=== PATIENT | female | born 1995 | race Caucasian/White ===

== ENCOUNTER 2022-11-18 07:13 | Emergency (ER) | payer OTHER ==
[~2022-11-18] VITALS: Ht 162.6 cm; Wt 63.6 kg
[2022-11-18] MEDS ORDERED: AMOXICILLIN500 MG PO (08:48)
[2022-11-18 09:16] VITALS: BP 125/92
== END 2022-11-18 09:38 | disposition home or self-care (01) ==
LOC: ED 07:13
DX: J02.9 Acute pharyngitis, unspecified (principal); Z20.822 Contact with and (suspected) exposure to COVID-19

== ENCOUNTER 2022-12-17 10:51 | Emergency (ER) | payer OTHER ==
[~2022-12-17] VITALS: Ht 162.6 cm; Wt 63.5 kg
[~2022-12-17 10:51] MED LIST: AMOXICILLIN500 MG PO
[2022-12-17 11:38] VITALS: BP 118/80
[2022-12-17 12:00] VITALS: BP 117/74
[2022-12-17] MEDS ORDERED: BENZONATATE200 MG PO (14:18)
[2022-12-17] MEDS ORDERED: ZYRTEC10 MG PO (14:18)
== END 2022-12-17 14:50 | disposition home or self-care (01) ==
LOC: ED 10:51
DX: J06.9 Acute upper respiratory infection, unspecified (principal); Z20.822 Contact with and (suspected) exposure to COVID-19

== ENCOUNTER 2022-12-31 08:31 | Emergency (ER) | payer OTHER ==
[~2022-12-31] VITALS: Ht 162.6 cm; Wt 66.0 kg
[~2022-12-31 08:31] MED LIST changes: +BENZONATATE200 MG PO; +ZYRTEC10 MG PO
[2022-12-31 08:37] VITALS: BP 127/82
[2022-12-31 08:45] VITALS: BP 122/73
[2022-12-31 09:00] VITALS: BP 118/77
[2022-12-31] MEDS ORDERED: TOBREX OPTH5 ML/BTL OU (09:07)
[2022-12-31 09:16] VITALS: BP 125/74
[2022-12-31 09:17] VITALS: BP 125/74
== END 2022-12-31 09:35 | disposition home or self-care (01) ==
LOC: ED 08:31
DX: H10.9 Unspecified conjunctivitis (principal); J02.9 Acute pharyngitis, unspecified; R59.0 Localized enlarged lymph nodes

== ENCOUNTER 2023-02-04 13:07 | Emergency (ER) | payer OTHER ==
[~2023-02-04] VITALS: Ht 162.6 cm; Wt 64.4 kg
[~2023-02-04 13:07] MED LIST changes: +TOBREX OPTH5 ML/BTL OU
[2023-02-04 14:30] VITALS: BP 130/87
[2023-02-04] MEDS ORDERED: TAM75CAP PO (14:57)
[2023-02-04 15:13] VITALS: BP 130/87
== END 2023-02-04 15:30 | disposition home or self-care (01) ==
LOC: ED 13:07
DX: J10.1 Influenza due to other identified influenza virus with other respiratory manifestations (principal)

== ENCOUNTER 2024-05-25 19:50 | Emergency (ER) | payer SELFPAY ==
[~2024-05-25] VITALS: Ht 162.6 cm; Wt 68.0 kg
[~2024-05-25 19:50] MED LIST changes: +TAM75CAP PO
[2024-05-25] MEDS ORDERED: ACETAMINOPHEN 500 MG TAB PO ONE (20:10)
[2024-05-25] MEDS ORDERED: DICLOFENAC SODIUM 75 MG/TAB PO ONE (20:10)
[2024-05-25] MEDS ORDERED: VOLTAREN - GENE75 MG PO (20:10)
[2024-05-25 20:28] VITALS: BP 117/78
== END 2024-05-25 20:32 | disposition home or self-care (01) | DRG 313 ==
LOC: ED 19:50
DX: R07.89 Other chest pain (principal); Z80.1 Family history of malignant neoplasm of trachea, bronchus and lung; Z80.8 Family history of malignant neoplasm of other organs or systems

== ENCOUNTER 2024-07-24 17:51 | Emergency (ER) | payer SELFPAY ==
[~2024-07-24] VITALS: Ht 162.6 cm; Wt 72.0 kg
[~2024-07-24 17:51] MED LIST changes: +VOLTAREN - GENE75 MG PO
[2024-07-24 18:23] VITALS: BP 149/105
[2024-07-24 18:30] VITALS: BP 120/82
[2024-07-24] MEDS ORDERED: KETOROLAC TROMETHAMINE 15 MG/ML SDV IV ONE (18:35)
[2024-07-24 18:46] LABS: BASO% 0.3 % (0-3); EOS% 1.4 % (0-8); HEMATOCRIT 36.4 % (37.0-47.0); IMMATURE GRANULOCYTES 0.1 % (0.0-5.0); LYMPH% 30.7 % (15-41); MEAN CELL VOLUME 100.8 fL CALC (80.0-100.0); MEAN CORPUSCULAR HGB 33.2 pG CALC (26.0-32.0); MONO% 5.8 % (2-13); NEUT# 8.68 thou/uL (2.00-7.15); NEUT% 61.7 % (42-76); RED BLOOD COUNT 3.61 mill/uL (4.20-5.60); RED CELL DISTRI WIDTH 11.4 % (11.5-15.5)
[2024-07-24 19:02] LABS: ALBUMIN 4.2 g/dL (3.2-5.0); BILIRUBIN, TOTAL 0.4 mg/dL (0.02-1.3); CREATININE 0.8 mg/dL (0.5-1.0); POTASSIUM 3.2 mmol/l (3.5-5.1); TOTAL PROTEIN 7.5 g/dL (6.3-8.2)
[2024-07-24] MEDS ORDERED: AZITHROMYCIN 250 MG/TAB PO ONE (19:30)
[2024-07-24] MEDS ORDERED: ZITHROMAX250 MG PO (19:36)
[2024-07-24] MEDS ORDERED: IBUPAK600 MG PO (19:36)
[2024-07-24 19:45] VITALS: BP 122/86
== END 2024-07-24 19:45 | disposition home or self-care (01) | DRG 816 ==
LOC: ED 17:51
PROVIDERS: Nurse Practitioner Family
DX: A28.1 Cat-scratch disease (principal)

== ENCOUNTER 2024-07-31 15:10 | Emergency (ER) | payer SELFPAY ==
[~2024-07-31] VITALS: Ht 162.6 cm; Wt 73.0 kg
[~2024-07-31 15:10] MED LIST changes: +IBUPAK600 MG PO; +ZITHROMAX250 MG PO
[2024-07-31 15:23] VITALS: BP 134/95
[2024-07-31 15:30] VITALS: BP 121/85
[2024-07-31] MEDS ORDERED: AMOX/K CLAV875 M1 PO (15:42)
[2024-07-31] MEDS ORDERED: DOXY-CAPS100 MG PO (15:42)
[2024-07-31] MEDS ORDERED: SB ALLERGY10 MG PO (15:43)
[2024-07-31 15:45] VITALS: BP 118/73
[2024-07-31 15:59] VITALS: BP 118/73
[2024-07-31] MEDS ORDERED: RABIES IMMUNE GLOBULIN 1,500 IU/10 ML SDV IM ONE (16:20)
[2024-07-31] MEDS ORDERED: RABIES VACCINE, PCEC 2.5 UNITS/VIAL SDV IM ONE (16:20)
[2024-07-31] MEDS ORDERED: TRAMADOL HYDROC50 M1 PO (16:47)
== END 2024-07-31 16:51 | disposition home or self-care (01) | DRG 607 ==
LOC: ED 15:10
PROC: 3E0234Z Introduction of Serum, Toxoid and Vaccine into Muscle, Percutaneous Approach (ICD-10-PCS; principal; 2024-07-31)
DX: R23.8 Other skin changes (principal); T14.8XXA Other injury of unspecified body region, initial encounter; W55.01XA Bitten by cat, initial encounter; Z23 Encounter for immunization
CPT/HCPCS: 90377

== ENCOUNTER 2025-01-24 07:23 | Emergency (ER) | payer SELFPAY ==
[~2025-01-24] VITALS: Ht 162.6 cm; Wt 68.0 kg
[~2025-01-24 07:23] MED LIST changes: +AMOX/K CLAV875 M1 PO; +DOXY-CAPS100 MG PO; +SB ALLERGY10 MG PO; +TRAMADOL HYDROC50 M1 PO
[2025-01-24] MEDS ORDERED: CHERATUSSIN PO (07:35)
[2025-01-24] MEDS ORDERED: BENZONATATE200 MG PO (07:35)
[2025-01-24] MEDS ORDERED: ZPAK PO (07:35)
[2025-01-24 07:39] VITALS: BP 117/69
== END 2025-01-24 07:48 | disposition home or self-care (01) | DRG 153 ==
LOC: ED 07:23
DX: J06.9 Acute upper respiratory infection, unspecified (principal)